=== PATIENT | male | born 1980 | race Hispanic/Latino ===

== ENCOUNTER 2018-12-27 19:21 | Emergency (ER) | payer SELFPAY ==
[~2018-12-27] VITALS: Ht 180.3 cm; Wt 70.3 kg
--- OUTSIDE RECORDS SUMMARY | 2018-12-27 19:23 | XMS REPORT ---
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 Allergies, Adverse Reactions, Alerts Allergy Name Allergy Type Status Severity Reaction(s) Onset Date Inactive Date Treating Clinician Comments No Known Allergies DA Active U 2015-04-20 00:00:00 Medications This patient has no known medications. Encounters Start Date/Time End Date/Time Encounter Type Admission Type Attending Clinicians Care Facility Care Department Encounter ID 2018-05-04 08:53:34 Inpatient [facility] [id number] 2018-05-02 13:04:42 Inpatient [facility] [id number] 2018-05-02 06:47:36 Inpatient [facility] [id number] 2018-05-02 05:37:00 Inpatient [facility] [id number] 2018-05-02 00:00:00 Inpatient [facility] [id number] 2018-04-24 00:00:00 Inpatient [facility] [id number] 2018-08-15 00:00:00 2018-08-15 00:00:00 Outpatient [facility] [id number] 2018-06-26 00:00:00 2018-06-26 00:00:00 Outpatient [facility] [id number] 2018-06-17 00:00:00 2018-06-17 00:00:00 Outpatient [facility] [id number] 2018-05-23 08:31:28 2018-05-23 08:31:28 Outpatient [facility] [id number] 2018-05-10 00:00:00 2018-05-10 00:00:00 Outpatient [facility] [id number] 2018-05-02 00:00:00 2018-05-02 00:00:00 Outpatient [facility] [id number] 2018-04-24 09:49:27 2018-04-24 09:49:27 Outpatient [facility] [id number] 2018-04-24 08:44:40 2018-04-24 08:44:40 Outpatient [facility] [id number] 2018-04-18 10:22:40 2018-04-18 10:22:40 Outpatient [facility] [id number] 2018-04-18 09:15:34 2018-04-18 09:15:34 Outpatient [facility] [id number] 2018-03-08 15:14:19 2018-03-08 15:14:19 Outpatient [facility] [id number] 2018-02-28 10:30:57 2018-02-28 10:30:57 Outpatient [facility] [id number] 2018-02-28 08:30:35 2018-02-28 08:30:35 Outpatient [facility] [id number] 2018-02-02 00:39:50 2018-02-02 00:39:50 Emergency [facility] [id number] 2018-02-01 23:22:23 2018-02-01 23:22:23 Emergency [facility] [id number] 2018-02-01 14:26:25 2018-02-01 14:26:25 Emergency [facility] [id number] 2017-08-15 00:00:00 2017-08-16 00:00:00 Outpatient [facility] [id number]
--- OUTSIDE RECORDS SUMMARY | 2018-12-27 19:23 | XMS REPORT | Clinical Summary ---
Author Author [facility] Organization [facility] Address Unknown Phone Unavailable Care Team Providers Care Shaft Repairer Name Role Phone Celeste Wright RN 78 Unavailable Allergies No Known Allergies Medications End Date Status Medication Sig Dispensed Refills Start Date Active oxybutynin (DITROPAN) 5 Take 1 tablet 60 tablet 3 mg tabletIndications: by mouth 2 8 Nocturia times daily. Active acetaminophen-codeine Take 1 tablet 30 tablet 0 (TYLENOL #3) 300-30 mg by mouth 9 per tabletIndications: every 6 hours Renal mass as needed for Pain. Active traMADol (ULTRAM) 50 mg Take 1 tablet 30 tablet 0 tabletIndications: Renal by mouth 9 mass every 6 hours as needed for Pain. 05/15/2018 docusate sodium (COLACE) Take 1 40 capsule 0 100 mg capsule by 9 capsuleIndications: Renal mouth 2 times mass daily for 10 days. Active Problems Problem Noted Date Left renal mass 05/02/2018 Renal mass 02/01/2018 Post-op pain Encounters Care Team Description Date Type Specialty Keisha Gillis 06/12/2018 Clinical Case Mgt Christian Hernandez MD Renal mass 05/23/2018 Office Visit Urology Chester Fish NP 05/02/2018 Anesthesia Event Gabino Colvin MD UROL - LAPAROSCOPIC LEFT NEPHRECTOMY 05/02/2018 Surgery Gabino Colvin MD Renal mass (Primary Dx); Post-op pain 05/02/2018 Hospital - Encounter 05/05/2018 Delfin Mcdonald MD Renal mass 04/24/2018 Hospital Lab Encounter Urology, Dn, Resident Delfin Mcdonald MD 04/24/2018 Hospital Encounter Christian Hernandez MD 04/18/2018 Hospital Radiology Encounter Christian Hernandez MD Espinosa, Giselle, PA Renal lesion (Primary Dx) 04/18/2018 Office Visit Urology Jasiel Santiago ResidentMD Renal mass (Primary Dx) 04/18/2018 Pre-Clinic Urology Review Renal mass 03/08/2018 Ancillary Radiology Procedure Christian Hernandez MD 02/28/2018 Hospital Lab Encounter Lalit Hinkle MD Moreno, Juan F, PA Nocturia (Primary Dx); Renal mass 02/28/2018 Office Visit Urology Lalit Hinkle MD Renal mass (Primary Dx) 02/01/2018 Emergency Emergency Medicine - 02/02/2018 after 12/26/2017 Family History Medical History Relation Name Comments Cancer Maternal Grandmother Diabetes Maternal Grandmother Relation Name Status Comments Maternal Grandmother Social History Date Tobacco Use Types Packs/Day Years Used Current Every Day Smoker Cigarettes Smokeless Tobacco: Never Used Tobacco Cessation: Ready to Quit: Yes; Counseling Given: Yes Drinks/Week oz/Week Comments Alcohol Use No Sex Assigned at Date Recorded Not on file Industry Job Start Date Occupation Not on file Not on file Not on file Travel End Travel History Travel Start No recent travel history available. Last Filed Vital Signs Reading Time Taken Comments Vital Sign 102/57 05/23/2018 8:33 AM PHYSIOTHERAPY PRACTICE MANAGER Blood Pressure 69 05/23/2018 8:33 AM PHYSIOTHERAPY PRACTICE MANAGER Pulse 36.8 C (98.2 F) 05/23/2018 8:33 AM PHYSIOTHERAPY PRACTICE MANAGER Temperature 18 05/23/2018 8:33 AM PHYSIOTHERAPY PRACTICE MANAGER Respiratory Rate 95% 05/05/2018 7:00 AM PHYSIOTHERAPY PRACTICE MANAGER Oxygen Saturation - - Inhaled Oxygen Concentration 68.4 kg (150 lb 14.4 oz) 05/23/2018 8:33 AM PHYSIOTHERAPY PRACTICE MANAGER Weight 180.3 cm (5' 11") 05/23/2018 8:33 AM PHYSIOTHERAPY PRACTICE MANAGER Height 21.05 05/23/2018 8:33 AM PHYSIOTHERAPY PRACTICE MANAGER Body Mass Index Plan of Treatment Health Maintenance Due Date Last Done Comments IMM Influenza Seasonal 01/21/2019 Oct to June (>/=19 yrs) Procedures Comments Procedure Name Priority Date/Time Associated Diagnosis BASIC METABOLIC PANEL Routine 05/05/2018 4:05 AM PHYSIOTHERAPY PRACTICE MANAGER CBC/DIFF Routine 05/05/2018 4:05 AM PHYSIOTHERAPY PRACTICE MANAGER BASIC METABOLIC PANEL Routine 05/04/2018 12:[address] CHEST W CONTRAST Discharge 05/04/2018 Renal mass Today 9:33 AM PHYSIOTHERAPY PRACTICE MANAGER BASIC METABOLIC PANEL Routine 05/04/2018 3:50 AM PHYSIOTHERAPY PRACTICE MANAGER CBC/DIFF Routine 05/04/2018 3:50 AM PHYSIOTHERAPY PRACTICE MANAGER SEQUENTIAL COMPRESSION Routine 05/03/2018 PUMP 8:32 PM PHYSIOTHERAPY PRACTICE MANAGER BASIC METABOLIC PANEL Routine 05/03/2018 3:36 AM PHYSIOTHERAPY PRACTICE MANAGER CBC/DIFF Routine 05/03/2018 3:36 AM PHYSIOTHERAPY PRACTICE MANAGER XRAY CHEST 1 VIEW STAT 05/02/2018 Renal mass 1:21 PM PHYSIOTHERAPY PRACTICE MANAGER SEQUENTIAL COMPRESSION Routine 05/02/2018 PUMP 1:06 PM PHYSIOTHERAPY PRACTICE MANAGER INFUSION PUMP Routine 05/02/2018 1:06 PM PHYSIOTHERAPY PRACTICE MANAGER CBC/DIFF Routine 05/02/2018 1:05 PM PHYSIOTHERAPY PRACTICE MANAGER BASIC METABOLIC PANEL Routine 05/02/2018 1:05 PM PHYSIOTHERAPY PRACTICE MANAGER ANESTHESIA PERIPHERAL Routine 05/02/2018 BLOCK 12:53 PM PHYSIOTHERAPY PRACTICE MANAGER Procedure Note - Sumit Brownlee MD - 05/02/2018 12:53 PM PHYSIOTHERAPY PRACTICE MANAGER Peripheral Nerve Block Nerve block type: B/L QL. Patient location during procedure: OR Pain location during procedure: abdomen Start time: 05/02/2018 12:15 PM End time: 05/02/2018 12:25 PM Indication : post-op pain management Staffing Anesthesio logist: Sumit Brownlee MD FIELD CROP II FARMWORKER/Resid ent: Jd Gaytan ResidentMD Pre-proced ure Checklist Completed: Patient identity confirmed. Surgical consent. Immediatel y prior to the procedure a time out was called. A time out verifies correct patient, procedure, equipment, emotional support teacher and site/side marked and Risk, benefits, and alternativ es were discussed Procedure Details Patient position: supine Prep: ChloraPrep Monitoring : blood pressure, continuous pulse ox and EKG Laterality : right Injection technique: single shot Procedures : ultrasound guided Maximum sterile barrier: antiseptic prep, cap worn, sterile gloves worn, hand hygiene performed and mask worn Needle Needle type: short-beve l Needle gauge: 21 Needle localizati on: ultrasound guidance Local Anesthetic : EXPAREL Volume Given (mL): 30 Nerve Stimulator or Paresthesi a Response Additional Responses: Bilateral QL block performed by Dr. Gaytan under supervisio n by Dr. Brownlee. --Left side: 10cc of Bupivacain e 0.5% + 10cc of Exparel injected under ultrasound guidance with good lateral spread noted along fascial plane. No complicati ons. --Right side: 20cc of Bupivacain e 0.5% +10cc of Exparel injected under ultrasound guidance with good lateral spread noted along fascial plane. No complicati ons. ANESTHESIA PERIPHERAL Routine 05/02/2018 BLOCK 12:51 PM PHYSIOTHERAPY PRACTICE MANAGER Procedure Note - Sumit Brownlee MD - 05/02/2018 12:51 PM PHYSIOTHERAPY PRACTICE MANAGER Peripheral Nerve Block Nerve block type: QL Bilateral. Patient location during procedure: OR Pain location during procedure: abdomen Start time: 05/02/2018 12:15 PM End time: 05/02/2018 12:25 PM Indication : post-op pain management Staffing Anesthesio logist: Sumit Brownlee MD [employer] FARMWORKER/Resid ent: Jd Gaytan ResidentMD Pre-proced ure Checklist Completed: Patient identity confirmed. Surgical consent. Immediatel y prior to the procedure a time out was called. A time out verifies correct patient, procedure, equipment, emotional support teacher and site/side marked and Risk, benefits, and alternativ es were discussed Procedure Details Patient position: supine Prep: ChloraPrep Monitoring : blood pressure, continuous pulse ox and EKG Laterality : left Injection technique: single shot Procedures : ultrasound guided Maximum sterile barrier: antiseptic prep, cap worn, sterile gloves worn, hand hygiene performed and mask worn Needle Needle type: short-beve l Needle gauge: 21 Needle localizati on: ultrasound guidance Local Anesthetic : EXPAREL Volume Given (mL): 20 Nerve Stimulator or Paresthesi a Response Additional Responses: Bilateral QL block performed by Dr. Gaytan under supervisio n by Dr. Brownlee. --Left side: 10cc of Bupivacain e 0.5% + 10cc of Exparel injected under ultrasound guidance with good lateral spread noted along fascial plane. No complicati ons. --Right side: 20cc of Bupivacain e 0.5% +10cc of Exparel injected under ultrasound guidance with good lateral spread noted along fascial plane. No complicati ons. [facility] Routine 05/02/2018 11:30 AM PHYSIOTHERAPY PRACTICE MANAGER SODIUM/POTASSIUM STAT 05/02/2018 10:23 AM PHYSIOTHERAPY PRACTICE MANAGER CALCIUM, IONIZED STAT 05/02/2018 10:23 AM PHYSIOTHERAPY PRACTICE MANAGER HEMOGLOBIN STAT 05/02/2018 10:23 AM PHYSIOTHERAPY PRACTICE MANAGER GLUCOSE STAT 05/02/2018 10:23 AM PHYSIOTHERAPY PRACTICE MANAGER CHLORIDE STAT 05/02/2018 10:23 AM PHYSIOTHERAPY PRACTICE MANAGER BLOOD GAS, ARTERIAL STAT 05/02/2018 10:23 AM PHYSIOTHERAPY PRACTICE MANAGER [facility] ANESTHESIA BLOCK Routine 05/02/2018 ARTERIAL CATHETER 9:48 AM PHYSIOTHERAPY PRACTICE MANAGER Procedure Note - Abelardo Calderon ResidentMD - 05/02/2018 9:48 AM PHYSIOTHERAPY PRACTICE MANAGER Arterial Catheter (A-line) Laterality : right Site: radial Prep: ChloraPrep Catheter Gauge: 20 G Pre-proced ure Checklist Completed: Patient identity confirmed. Risks, benefits, and alternativ es were discussed. Procedures Sterile barrier used: antiseptic used for procedure, sterile gloves worn, hand hygiene performed prior to procedure and mask worn. Narrative Start Time: 05/02/2018 8:43 AM End Time: 05/02/2018 8:45 AM Anesthesio logist: Dr. Fan Resident/C RNA: MD Kvng CA1 Notes Uncomplica nyla placement of arterial line by CA1 INTUBATION Routine 05/02/2018 9:18 AM PHYSIOTHERAPY PRACTICE MANAGER Procedure Note - Abelardo Calderon ResidentMD - 05/02/2018 9:18 AM PHYSIOTHERAPY PRACTICE MANAGER INTUBATION Date/Time: 05/02/2018 8:43 AM Urgency: elective Airway not difficult General Informatio n and Staff Patient location during procedure: OR Anesthesio logist: Philip Fan MD Resident/C RNA: Abelardo Caledron ResidentMD Performed: resident/C RNA Indicatio ns and Patient Condition Indication s for airway management : anesthesia Spontaneou s Ventilatio n: absent Sedation level: deep Preoxygena nyla: yes Patient position: sniffing MILS maintained throughout Mask difficulty assessment : 2 - vent by mask + OA or adjuvant +/- NMBA Final Airway Details Final airway type: endotrache al airway Successful airway: ETT Cuffed: yes Successful intubation technique: direct Facilitati ng devices/me thods: anterior pressure/B URP Endotrache al tube insertion site: oral Blade: Benjamin Blade size: #3 Cords visualized : grade 2 Placement verified by: chest auscultati on and capnometry Measured from: lips ETT to lips (cm): 24 Number of attempts at approach: 1 Ventilatio n between attempts: none Additiona l Comments Easy bag mask ventilatio n with oral airway in place. DL with x 1 by Efrain Sanders MD PGY1. Grade 2 view. 8.0 ETT passed atraumatic ally through cords to 24 cm at lips. Cuff inflated, tube taped in place. Positionin g confirmed with auscultati on and ETCO2. 14Fr OG tube passed through esophagus, stomach contents suctioned. No trauma to teeth or lips. Abelardo Calderon MD, MPH [facility] Anesthesio logy, CA1/PGY2 #[id number] UROL - NEPHRECTOMY, 05/02/2018 Renal mass LAPAROSCOPIC 8:27 AM PHYSIOTHERAPY PRACTICE MANAGER Special Needs 5:45 am arrival time confirmed with patient RBC UNITS STAT 05/02/2018 7:06 AM PHYSIOTHERAPY PRACTICE MANAGER TYPE AND SCREEN STAT 05/02/2018 7:06 AM PHYSIOTHERAPY PRACTICE MANAGER URINE CULTURE Routine 04/24/2018 Renal mass 10:00 AM PHYSIOTHERAPY PRACTICE MANAGER HIV-1/HIV-2 ROUTINE Routine 04/24/2018 SCREENING 9:56 AM PHYSIOTHERAPY PRACTICE MANAGER PT/INR/PTT Routine 04/24/2018 Renal mass 9:56 AM PHYSIOTHERAPY PRACTICE MANAGER CBC/DIFF Routine 04/24/2018 Renal mass 9:56 AM PHYSIOTHERAPY PRACTICE MANAGER COMPREHENSIVE METABOLIC Routine 04/24/2018 Renal mass PANEL 9:56 AM PHYSIOTHERAPY PRACTICE MANAGER 12 LEAD EKG Routine 04/24/2018 9:31 AM PHYSIOTHERAPY PRACTICE MANAGER XRAY CHEST 2 VIEWS Routine 04/18/2018 Renal lesion 10:28 AM PHYSIOTHERAPY PRACTICE MANAGER CT ABDOMEN W AND W/O Routine 03/08/2018 Renal mass CONTRAST - KIDNEY 4:22 PM PHYSIOTHERAPY PRACTICE MANAGER CREATININE Routine 02/28/2018 Renal mass 10:47 AM PHYSIOTHERAPY PRACTICE MANAGER CT ABDOMEN AND PELVIS STAT 02/02/2018 Renal mass CONTRAST 1:30 AM CDT BMP POC Routine 02/01/2018 5:00 PM CDT CBC/DIFF STAT 02/01/2018 4:57 PM CDT URINALYSIS STAT 02/01/2018 4:51 PM CDT after 12/26/2017 Results * CBC/DIFF (05/05/2018 4:05 AM PHYSIOTHERAPY PRACTICE MANAGER) Only the most recent of 6 results within the time period is included. WBC 10.0 4.5 - 12.0 K/uL [facility] 2 RBC 4.43 (L) 4.60 - 6.20 M/uL [facility] 2 Hemoglobin 13.4 (L) 14.0 - 18.0 g/dL BT [facility] 2 Hematocrit 41.9 40.0 - 54.0 % BT [facility] 2 MCV 95 (H) 82 - 92 fL [facility] 2 MCH 30.2 27.0 - 31.0 pg BT [facility] 2 MCHC 32.0 32.0 - 36.0 g/dL [facility] 2 RDW 43.2 35.1 - 43.9 fL [facility] 2 Platelets 245 150 - 400 K/uL [facility] 2 Mean Platelet 11.1 9.4 - 12.4 fL [facility] Volume 2 Percent NRBC 0.0 BT [facility] 2 Absolute NRBC 0.00 BT [facility] 2 Neutrophils 69.6 (H) 34.0 - 67.9 % [facility] 2 Lymphs 19.5 (L) 21.8 - 50.0 % [facility] 2 Monocytes 8.0 5.3 - 12.0 % [facility] 2 Eos 2.1 0.8 - 5.0 % BT [facility] 2 Basos 0.2 0.2 - 1.2 % [facility] 2 Immature 0.6 (H) 0.0 - 0.5 [facility] Granulocytes 2 Neutrophils 6.95 (H) 1.78 - 5.36 K/uL [facility] (Absolute) 2 Lymphs 1.95 1.32 - 3.57 K/uL BT [facility] (Absolute) 2 Monocytes(Absol 0.80 0.30 - 0.82 K/uL BT [facility] williams) 2 Eos (Absolute) 0.21 0.04 - 0.54 K/uL BT [facility] 2 Baso (Absolute) 0.02 0.01 - 0.08 K/uL BT [facility] 2 Immature Grans 0.06 (H) 0.00 - 0.03 K/uL [facility] (Abs) 2 Specimen Blood Performing Organization Address City/[facility] Phone Number MISYS [facility] 2 * BASIC METABOLIC PANEL (05/05/2018 4:05 AM PHYSIOTHERAPY PRACTICE MANAGER) Only the most recent of 5 results within the time period is included. CO2 28 21 - 31 mmol/L BT [facility] 1 Chloride 99 98 - 107 mmol/L [facility] 1 Potassium 3.8 3.5 - 5.1 mmol/L BT [facility] 1 Sodium 137 136 - 145 mmol/L [facility] 1 Glucose 94 70 - 110 mg/dL [facility] 1 BUN 8 7 - 25 mg/dL [facility] 1 Creatinine 1.10 0.7 - 1.3 mg/dL [facility] 1 Anion Gap 10 BT [facility] 1 Calcium 9.3 8.6 - 10.3 mg/dL [facility] 1 GFR, Estimated >60 mL/min/1.73 m2 BT [facility] 1 eGFR If Africn >60 mL/min/1.73 m2 [facility] Am 1 Specimen Blood Performing Organization Address City/[facility] Phone Number MISYS [facility] 1 * CT CHEST W CONTRAST (05/04/2018 9:33 AM PHYSIOTHERAPY PRACTICE MANAGER) Specimen Impressions Performed At IMPRESSION: SMS Partially seen findings status post left nephrectomy with stranding and gas in the surgical bed, and small volume pneumoperitoneum, consistent with recent surgery. A 4 mm subpleural left lingular solid nodule is indeterminate. Recommend follow-up per oncology protocol. Mild bibasilar consolidations may represent atelectasis or aspiration pneumonia the appropriate clinical setting. Dictated By: Lanie Ellison MD, 05/04/2018 4:35 PM I have reviewed the study and agree with the findings in this report. Signed By: Kori Rich MD, 05/04/2018 4:55 PM Narrative Performed At EXAM: Chest CT with contrast SMS TECHNIQUE: CT scan of the chestWITH intravenous contrast, using standard protocol.The chest was scanned utilizing a multidetector helical scanner from the lung apex through the level of the adrenal glands after the IV administration of 100 cc of Omnipaque 300.Coronal and sagittal reformations were obtained. COMPARISON: Chest radiograph 05/02/2018 INDICATION: Nodular hyperdensities on chest radiograph. DISCUSSION: Lines/tubes:None. Lungs and Airways: Calcified granuloma in the left upper lobe (series 2, image 54). Mild bibasilar consolidations. 4 mm subpleural left lingular solid nodule (series 2, image 87). Pleura: Trace left pleural effusion. No pneumothorax. Heart and mediastinum: The thyroid gland is normal. No mediastinal, hilar or axillary lymphadenopathy is seen. The heart and pericardium are within normal limits. The left vertebral artery branches off of the aortic arch. The main pulmonary artery and the mid ascending aorta measures 2.4 and 2.8 cm respectively. Abdomen:Surgically absent left kidney with stranding and gas in the left retroperitoneum. There is a small amount of pneumoperitoneum in the upper abdomen. Otherwise unremarkable. Bones/ Soft tissue: The visualized bony thorax is within normal limits. Procedure Note Interface, Rad/Mammog In - 05/04/2018 5:00 PM PHYSIOTHERAPY PRACTICE MANAGER EXAM: Chest CT with contrast TECHNIQUE: CT scan of the chest WITH intravenous contrast, using standard protocol. The chest was scanned utilizing a multidetector helical scanner from the lung apex through the level of the adrenal glands after the IV administration of 100 cc of Omnipaque 300. Coronal and sagittal reformations were obtained. COMPARISON: Chest radiograph 05/02/2018 INDICATION: Nodular hyperdensities on chest radiograph. DISCUSSION: Lines/tubes: None. Lungs and Airways: Calcified granuloma in the left upper lobe (series 2, image 54). Mild bibasilar consolidations. 4 mm subpleural left lingular solid nodule (series 2, image 87). Pleura: Trace left pleural effusion. No pneumothorax. Heart and mediastinum: The thyroid gland is normal. No mediastinal, hilar or axillary lymphadenopathy is seen. The heart and pericardium are within normal limits. The left vertebral artery branches off of the aortic arch. The main pulmonary artery and the mid ascending aorta measures 2.4 and 2.8 cm respectively. Abdomen:Surgically absent left kidney with stranding and gas in the left retroperitoneum. There is a small amount of pneumoperitoneum in the upper abdomen. Otherwise unremarkable. Bones/ Soft tissue: The visualized bony thorax is within normal limits. IMPRESSION IMPRESSION: Partially seen findings status post left nephrectomy with stranding and gas in the surgical bed, and small volume pneumoperitoneum, consistent with recent surgery. A 4 mm subpleural left lingular solid nodule is indeterminate. Recommend follow-up per oncology protocol. Mild bibasilar consolidations may represent atelectasis or aspiration pneumonia the appropriate clinical setting. Dictated By: Lanie Ellison MD, 05/04/2018 4:35 PM I have reviewed the study and agree with the findings in this report. Signed By: Kori Rich MD, 05/04/2018 4:55 PM Performing Organization Address City/State/Zipcode Phone Number SMS * XRAY CHEST 1 VIEW (05/02/2018 1:21 PM PHYSIOTHERAPY PRACTICE MANAGER) Specimen Impressions Performed At IMPRESSION: SMS 1.Multiple nonspecific nodular densities. Dedicated CT chest without contrast is recommended for further evaluation given history of renal mass. 2.Status post nephrectomy with postsurgical subdiaphragmatic free air. 3.No pneumothorax. If the report is "FINALIZED" it indicates that the attending/staff radiologist has reviewed the images and agrees with the resident's interpretation. Dictated By: Morgan Oneill MD, 05/02/2018 1:33 PM I have reviewed the study and agree with the findings in this report. Signed By: Axel Betancourt MD, 05/02/2018 1:34 PM Narrative Performed At EXAM: XR CHEST 1 VIEW SMS DATE: 05/02/2018 1:21 PM INDICATION: eval for PTX COMPARISON: Chest radiograph on 04/18/2018. FINDINGS: Devices, Lines, and Tubes: None. Heart and Mediastinum: The cardiomediastinal silhouette is unremarkable. Lungs and Pleura: Stable multiple nonspecific nodular densities. No significant pleural effusion, pneumothorax, or focal consolidation. Bones and Soft Tissues: The patient is status post nephrectomy with noted postsurgical subdiaphragmatic free air. Procedure Note Interface, Rad/Mammog In - 05/02/2018 1:40 PM PHYSIOTHERAPY PRACTICE MANAGER EXAM: XR CHEST 1 VIEW DATE: 05/02/2018 1:21 PM INDICATION: eval for PTX COMPARISON: Chest radiograph on 04/18/2018. FINDINGS: Devices, Lines, and Tubes: None. Heart and Mediastinum: The cardiomediastinal silhouette is unremarkable. Lungs and Pleura: Stable multiple nonspecific nodular densities. No significant pleural effusion, pneumothorax, or focal consolidation. Bones and Soft Tissues: The patient is status post nephrectomy with noted postsurgical subdiaphragmatic free air. IMPRESSION IMPRESSION: 1. Multiple nonspecific nodular densities. Dedicated CT chest without contrast is recommended for further evaluation given history of renal mass. 2. Status post nephrectomy with postsurgical subdiaphragmatic free air. 3. No pneumothorax. If the report is "FINALIZED" it indicates that the attending/staff radiologist has reviewed the images and agrees with the resident's interpretation. Dictated By: Morgan Oneill MD, 05/02/2018 1:33 PM I have reviewed the study and agree with the findings in this report. Signed By: Axel Betancourt MD, 05/02/2018 1:34 PM Performing Organization Address City/State/Zipcode Phone Number SMS * [facility] (05/02/2018 11:30 AM PHYSIOTHERAPY PRACTICE MANAGER) HX FINAL KIDNEY, LEFT, TOTAL COPATH DIAGNOSIS NEPHRECTOMY: - CLEAR CELL RENAL CELL CARCINOMA, WHO/ISUP GRADE 2 - TUMOR SIZE: 4.1 CM IN GREATEST DIMENSION - TUMOR EXTENSION INTO RENAL SINUS - SURGICAL MARGINS NEGATIVE FOR CARCINOMA - NO SARCOMATOID FEATURES IDENTIFIED - NO RHABDOID FEATURES IDENTIIFIED - NO NECROSIS IDENTIFIED - ONE PERIRENAL LYMPH NODE NEGATIVE FOR METASTATIC CARCINOMA (0/1) - PATHOLOGIC STAGING (pTNM, AJCC 8TH EDITION): [id number] - SEE CANCER SYNOPTIC REPORT IN MICROSOPIC DESCRIPTION Pathologic Stage Classification (pTNM, AJCC 8th Edition) Primary Tumor (pT): pT3a: Tumor invades renal sinus but not beyond Gerota's fascia Regional Lymph Nodes (pN): pN0: No regional lymph node metastasis Distant Metastasis (pM): MX Kavita Aviles M.D., PhD./[id number] Staff Pathologist Specimen Narrative Performed At Name [facility]UL[facility] Date of 1980 Hospital Number [id number] Location [facility] MED/SURG SURGICAL PATHOLOGY Collected:05/02/2018 11:30 Received: 05/02/2018 11:36 PATHOLOGIC DIAGNOSIS KIDNEY, LEFT, TOTAL NEPHRECTOMY: - CLEAR CELL RENAL CELL CARCINOMA, WHO/ISUP GRADE 2 - TUMOR SIZE: 4.1 CM IN GREATEST DIMENSION - TUMOR EXTENSION INTO RENAL SINUS - SURGICAL MARGINS NEGATIVE FOR CARCINOMA - NO SARCOMATOID FEATURES IDENTIFIED - NO RHABDOID FEATURES IDENTIIFIED - NO NECROSIS IDENTIFIED - ONE PERIRENAL LYMPH NODE NEGATIVE FOR METASTATIC CARCINOMA (0/1) - PATHOLOGIC STAGING (pTNM, AJCC 8TH EDITION): [id number] - SEE CANCER SYNOPTIC REPORT IN MICROSOPIC DESCRIPTION Pathologic Stage Classification (pTNM, AJCC 8th Edition) Primary Tumor (pT): pT3a: Tumor invades renal sinus but not beyond Gerota's fascia Regional Lymph Nodes (pN): pN0: No regional lymph node metastasis Distant Metastasis (pM): MX Kavita Aviles M.D., PhD./[id number] Staff Pathologist Pertinent Clinical Information [place] the kidney for show and tell Gross Description Specimen Material:Left kidney The case is received in one part labeled with the patient's name "XENA JULIAN JR.", medical record number and given accession number [id number], and it is accompanied by a requisition form labeled with the same name and accession number. Received in formalin labeled "LEFT KIDNEY" is a 321 gram, 13 x 8 x 5 left nephrectomy containing a 12 x 6.5 x 5 cm kidney with ureter (4.1 cm in length, 0.2 cm in diameter), renal artery (0.8 cm in length, and 0.7 cm in diameter), renal vein (0.7 cm in length and 1.1 cm in diameter) and 5.5 x 3.6 x 2 cm attached adipose tissue.No adrenal gland is identified. The kidney is bivalved to display a 4.1 x 4 x 3 cm, 50% cystic and 50% hong-yellow hemorrhagic and circumscribed mass predominantly in the inferior pole.The mass is abutting the renal capsule, it is 8.6 cm from the ureteral margin, 3.5 cm from the renal artery, 2.5 cm from the renal vein, 2 cm from the renal pelvis, 6.0 cm from ureter margin and 0.2 cm from the perinephric fat. The remaining kidney parenchyma is hong-red, homogenous and unremarkable and the corticomedullary junction is well-defined.The cortex is 0.2 cm thick. The urothelium is white and smooth.There are no lymph nodes identified. Ink Code: BlackGerota's fascial margin Section Code: [id number] and ureteral margin A2-Q2lswxiqccadkowl sections of tumor S1dcnxb to normal in capsule T2twybr to urothelium U8hvfpg to perinephric fat J8jqbul to renal pelvis J7avxrnz section of renal pelvis R86wjoohd calyx Z23rojvaj corticomedullary //[id number] Band Tumbler HEIDI MEDINA MD Pathology Resident Microscopic Description Sections show renal parenchyma with a renal cell carcinoma. The tumor is relatively circumscribed and arranged in nests, tubules with cystic changes and hemorrhage. The tumor cells have abundant clear cytoplasm and round nuclei. No priminent nucleoli under 100x are seen. There is one small focus of tumor extension into renal sinus. CAP CANCER SYNOPTIC REPORT Procedure:Total nephrectomy Specimen Laterality:Left Tumor Site:Lower pole Tumor Size:4.1 x 4 x 3 cm Tumor Focality:Unifocal Histologic Type:Clear cell renal cell carcinoma Sarcomatoid Features:Not identified Rhabdoid Features: Not identified Histologic Grade (WHO/ISUP): Grade 2: Nucleoli conspicuous and eosinophilic at 400x magnification, visible but not prominent at 100x magnification Tumor Necrosis:Not identified Tumor Extension:Tumor extension into renal sinus Margins:Uninvolved by invasive carcinoma Lymphovascular Invasion:Not identified Regional Lymph Nodes Number of Lymph Nodes Involved: 0 Number of Lymph Nodes Examined: 1 Pathologic Stage Classification (pTNM, AJCC 8th Edition) Primary Tumor (pT): pT3a: Tumor invades renal sinus but not beyond Gerota's fascia Regional Lymph Nodes (pN): pN0: No regional lymph node metastasis Distant Metastasis (pM): MX Pathologic Findings in Non-neoplastic Kidney:None I have personally reviewed the relevant preparations for the specimen(s), reviewedand agreed with the resident/fellow's interpretation. Real HAWK/[id number] Pathology Resident Electronically Signed Out Kavita Aviles M.D., PhD./[id number] Staff Pathologist Performing Organization Address City/State/[facility] Phone Number ARON SHARP [employer], [place] * SODIUM/POTASSIUM (05/02/2018 10:23 AM PHYSIOTHERAPY PRACTICE MANAGER) Sodium 134 (L) 136 - 145 mmol/L BT 4TH FLOOR Potassium 3.4 (L) 3.5 - 5.1 mmol/L BT 4TH FLOOR Specimen Performing Organization Address [facility] Phone Number MISYS BT 4TH FLOOR * CALCIUM, IONIZED (05/02/2018 10:23 AM PHYSIOTHERAPY PRACTICE MANAGER) Calcium, 1.11 (L) 1.15 - 1.29 mmol/L BT 4TH FLOOR Ionized Specimen Performing Organization Address [facility] Phone Number MISYS BT 4TH FLOOR * HEMOGLOBIN (05/02/2018 10:23 AM PHYSIOTHERAPY PRACTICE MANAGER) Hemoglobin 13.5 (L) 14.0 - 18.0 g/dL BT 4TH FLOOR Specimen Performing Organization Address [facility] Phone Number MISYS BT 4TH FLOOR * GLUCOSE (05/02/2018 10:23 AM PHYSIOTHERAPY PRACTICE MANAGER) Glucose 141 (H) 70 - 110 mg/dL BT 4TH FLOOR Specimen Performing Organization Address City/[facility] Phone Number MISYS BT 4TH FLOOR * CHLORIDE (05/02/2018 10:23 AM PHYSIOTHERAPY PRACTICE MANAGER) Chloride 110 (H) 98 - 107 mmol/L BT 4TH FLOOR Specimen Performing Organization Address [facility] Phone Number MISYS BT 4TH FLOOR * BLOOD GAS, ART (05/02/2018 10:23 AM PHYSIOTHERAPY PRACTICE MANAGER) Temperature 37.0 degree C BT 4TH FLOOR pH, Art 7.41 7.35 - 7.45 BT 4TH FLOOR pCO2, Art 40.0 32.0 - 45.0 mm Hg BT 4TH FLOOR pO2, Art 304 (H) 72 - 104 mm Hg BT 4TH FLOOR Base Excess, 1.0 mmol/L BT 4TH FLOOR Art HCO3, Art 25.1 22.0 - 26.0 mmol/L BT 4TH FLOOR % Sat, Arterial 100 (H) 95 - 99 % BT 4TH FLOOR Specimen Performing Organization Address City/[facility] Phone Number MISYS BT 4TH FLOOR * CROSSMATCH (ADDITIONAL RED CELL UNITS-LAB) (05/02/2018 7:06 AM PHYSIOTHERAPY PRACTICE MANAGER) Unit Number [id number] BT BLOOD BANK Blood Component Leuko-poor red cells BT BLOOD BANK UNIT DIVISION 0 BT BLOOD BANK Status of Unit Released BT BLOOD BANK Transfusion OK to transfuse BT BLOOD BANK Status Crossmatch Compatible BT BLOOD BANK Result Unit Number [id number] BT BLOOD BANK Blood Component Leuko-poor red cells BT BLOOD BANK UNIT DIVISION 0 BT BLOOD BANK Status of Unit Released BT BLOOD BANK Transfusion OK to transfuse BT BLOOD BANK Status Crossmatch Compatible BT BLOOD BANK Result Specimen Blood Performing Organization Address City/State/Zipcode Phone Number MISYS BT BLOOD BANK [address] [place] [address] * URINE CULTURE (04/24/2018 10:00 AM PHYSIOTHERAPY PRACTICE MANAGER) Spec Clean catch urine BT MICROBIOLOGY Description Order Comments None BT MICROBIOLOGY Culture No growth 2 days BT MICROBIOLOGY Report Status Final 04/26/2018 BT MICROBIOLOGY Specimen Urine clean catch - Clean Catch [place] Performing Organization Address [facility] Phone Number MISYS BT MICROBIOLOGY * HIV-1/HIV-2 ROUTINE SCREENING (04/24/2018 9:56 AM PHYSIOTHERAPY PRACTICE MANAGER) HIV-1/HIV-2 Negative NEG BT MAIN-STATION 3 Specimen Performing Organization Address City/[facility] Phone Number MISYS BT MAIN-STATION 3 * COMPREHENSIVE METABOLIC PANEL(DBIL NOT INCLUDED) (04/24/2018 9:56 AM PHYSIOTHERAPY PRACTICE MANAGER) Albumin 4.4 4.2 - 5.5 g/dL BT MAIN-STATION 1 Calcium 9.4 8.6 - 10.3 mg/dL BT MAIN-STATION 1 CO2 29 21 - 31 mmol/L BT MAIN-STATION 1 Chloride 103 98 - 107 mmol/L BT MAIN-STATION 1 Creatinine 0.80 0.7 - 1.3 mg/dL BT MAIN-STATION 1 Glucose 102 70 - 110 mg/dL BT MAIN-STATION 1 Alkaline 59 34 - 104 U/L BT MAIN-STATION Phosphatase, S 1 Potassium 4.6 3.5 - 5.1 mmol/L BT MAIN-STATION 1 Sodium 139 136 - 145 mmol/L BT MAIN-STATION 1 ALT 16 7 - 52 U/L BT MAIN-STATION 1 AST (SGOT) 14 13 - 39 U/L BT MAIN-STATION 1 BUN 9 7 - 25 mg/dL BT MAIN-STATION 1 Bilirubin, 0.3 0.2 - 1.2 mg/dL BT MAIN-STATION Total 1 Protein, Total, 7.1 6.0 - 8.3 g/dL BT MAIN-STATION Serum 1 GFR, Estimated >60 mL/min/1.73 m2 BT MAIN-STATION 1 eGFR If Africn >60 mL/min/1.73 m2 BT MAIN-STATION Am 1 Anion Gap 7 BT MAIN-STATION 1 Specimen Blood Performing Organization Address City/[facility] Phone Number MISYS BT MAIN-STATION 1 * PT/INR/PTT (04/24/2018 9:56 AM PHYSIOTHERAPY PRACTICE MANAGER) PT 12.7 11.8 - 15.0 Seconds BT MAIN-STATION 3 INR 1.0 BT MAIN-STATION SUGGESTED THERAPEUTIC RANGES: 3 INR 2.0-3.0 for MODERATE INTENSITY ANTICOAGULATION INR 2.5-3.5 for HIGH INTENSITY ANTICOAGULATION PTT 28.0 23.6 - 36.4 Seconds BT MAIN-STATION 3 Specimen Blood Performing Organization Address [facility] Phone Number MISYS BT MAIN-STATION 3 * 12 LEAD EKG (04/24/2018 9:31 AM PHYSIOTHERAPY PRACTICE MANAGER) 12 LEAD EKG FOR [facility] Test Date:2018-04-24 Pat Name: XENA JULIAN Department: [id number] Room: Gender: Ryan Winter Intern: [id number] :1981-0 12-19 Requested By: CHESTER FISH Order Number: [id number] Reading MD: Tavo Villavicencio M.D. Measurements Intervals [place] Rate: 52 P:78 MA: 134 QRS: 68 QRSD: 92 T:64 QT: 410 QTc:384 Interpretive Statements SINUS BRADYCARDIA Electronically Signed On 04-24-2018 10:02:44 PHYSIOTHERAPY PRACTICE MANAGER by Tavo Villavicencio M.D. Specimen Performing Organization Address City/[facility] Phone Number SMS * XRAY CHEST 2 VIEWS (04/18/2018 10:28 AM PHYSIOTHERAPY PRACTICE MANAGER) Specimen Impressions Performed At IMPRESSION: [facility] Nodular densities.In the setting of recently discovered renal mass. Recommend chest CTfor further evaluation. Dictated By: Orlin Salamanca MD, 04/18/2018 11:10 AM I have reviewed the study and agree with the findings in this report. Signed By: Axel Betancourt MD, 04/18/2018 11:12 AM Narrative Performed At EXAMINATION:XRAY CHEST 2 VIEWS SMS INDICATION: left renal lesion COMPARISON:None FINDINGS: TUBES and LINES:None. LUNGS:Lungs are well inflated.There are a few nonspecific nodular densities. There is no evidence of pneumonia or pulmonary edema. PLEURA:No pleural effusion or pneumothorax. HEART AND MEDIASTINUM:The cardiomediastinal silhouette is unremarkable. BONES AND SOFT TISSUES:No acute osseous lesion.Soft tissues are unremarkable. UPPER ABDOMEN: No free air under the diaphragm. Procedure Note Interface, Rad/Mammog In - 04/18/2018 11:17 AM PHYSIOTHERAPY PRACTICE MANAGER EXAMINATION: XRAY CHEST 2 VIEWS INDICATION: left renal lesion COMPARISON: None FINDINGS: TUBES and LINES: None. LUNGS: Lungs are well inflated. There are a few nonspecific nodular densities. There is no evidence of pneumonia or pulmonary edema. PLEURA: No pleural effusion or pneumothorax. HEART AND MEDIASTINUM: The cardiomediastinal silhouette is unremarkable. BONES AND SOFT TISSUES: No acute osseous lesion. Soft tissues are unremarkable. UPPER ABDOMEN: No free air under the diaphragm. IMPRESSION IMPRESSION: Nodular densities. In the setting of recently discovered renal mass. Recommend chest CT for further evaluation. Dictated By: Orlin Salamanca MD, 04/18/2018 11:10 AM I have reviewed the study and agree with the findings in this report. Signed By: Axel Betancourt MD, 04/18/2018 11:12 AM Performing Organization Address City/State/Zipcode Phone Number SMS * CT ABDOMEN W AND W/O CONTRAST - KIDNEY (03/08/2018 4:22 PM PHYSIOTHERAPY PRACTICE MANAGER) Specimen Impressions Performed At IMPRESSION: SMS 1.Left renal mass measures 5 cm with numerous enhancing septations and solid mural components, concerning for cystic renal cell carcinoma (likely clear cell subtype). A multilocular cystic nephroma is a less likely consideration. Recommend surgical consult. 2.No abdominal lymphadenopathy or other suspicious lesions within the abdomen. No evidence of extension outside Gerota's fascia, vascular invasion or distant metastatic disease. 3.Moderate gastric fundal and body wall thickening, greater than expected for degree of underdistention. This may represent gastritis. Direct visualization with endoscopy is recommended for further evaluation. Dictated By: Sloan Mitchell MD, 03/11/2018 7:56 AM I have reviewed the study and agree with the findings in this report. Signed By: Alex Lira MD, 03/11/2018 4:40 PM Narrative Performed At EXAM: CT Abdomen WITHOUT and WITH contrast SMS INDICATION: Complex renal mass COMPARISON: None TECHNIQUE:Abdomen was scanned utilizing a multidetector helical scanner from the lung base to the iliac crest before and after administration of IV contrast. Coronal and sagittal reformations were obtained. Renal mass protocol was performed. Scan was performed pre-, nephrographic, and 4 minute delayed phase. IV CONTRAST: 149 mL of Omnipaque 300 ORAL CONTRAST: Water COMPLICATIONS: None RADIATION DOSE: Total DLP: 597 mGy*cm Estimated effective dose: (DLP x 0.015 x size factor) mSv CTDIvol has been reviewed. It is below the limits set by the Radiation Protocol Committee (RPC). FINDINGS: LINES and TUBES: None. LOWER THORAX:Unremarkable HEPATOBILIARY: No focal hepatic lesions. No biliary ductal dilation. GALLBLADDER: No radio-opaque stones or sludge.No wall thickening. SPLEEN: No splenomegaly. PANCREAS: No focal masses or ductal dilatation. ADRENALS: No adrenal nodules. KIDNEYS/URETERS: Kidneys enhance symmetrically.No hydronephrosis or stones. Left inferior pole 5.0 x 4.7 x 3.9 cm partly exophytic mass with numerous enhancing thickened septations and solid mural nodules that washout on delayed phase. There are multiple internal cystic locules, which may reflect necrosis.. Collecting System: Patent Renal Artery: Patent Renal Vein: Patent IVC: Patent GI TRACT: Nonspecific moderate gastric wall thickening predominantly involving the fundus and body which is greater than expected for gastric underdistention. No abnormal distention, wall thickening, or evidence of bowel obstruction. LYMPH NODES: No lymphadenopathy. VESSELS: Unremarkable. No filling defects in the IVC or renal veins. PERITONEUM / RETROPERITONEUM: No free air or fluid. BONES: Unremarkable. SOFT TISSUES: Unremarkable. Procedure Note Interface, Rad/Mammog In - 03/11/2018 4:45 PM PHYSIOTHERAPY PRACTICE MANAGER EXAM: CT Abdomen WITHOUT and WITH contrast INDICATION: Complex renal mass COMPARISON: None TECHNIQUE: Abdomen was scanned utilizing a multidetector helical scanner from the lung base to the iliac crest before and after administration of IV contrast. Coronal and sagittal reformations were obtained. Renal mass protocol was performed. Scan was performed pre-, nephrographic, and 4 minute delayed phase. IV CONTRAST: 149 mL of Omnipaque 300 ORAL CONTRAST: Water COMPLICATIONS: None RADIATION DOSE: Total DLP: 597 mGy*cm Estimated effective dose: (DLP x 0.015 x size factor) mSv CTDIvol has been reviewed. It is below the limits set by the Radiation Protocol Committee (RPC). FINDINGS: LINES and TUBES: None. LOWER THORAX: Unremarkable HEPATOBILIARY: No focal hepatic lesions. No biliary ductal dilation. GALLBLADDER: No radio-opaque stones or sludge. No wall thickening. SPLEEN: No splenomegaly. PANCREAS: No focal masses or ductal dilatation. ADRENALS: No adrenal nodules. KIDNEYS/URETERS: Kidneys enhance symmetrically. No hydronephrosis or stones. Left inferior pole 5.0 x 4.7 x 3.9 cm partly exophytic mass with numerous enhancing thickened septations and solid mural nodules that washout on delayed phase. There are multiple internal cystic locules, which may reflect necrosis.. Collecting System: Patent Renal Artery: Patent Renal Vein: Patent IVC: Patent GI TRACT: Nonspecific moderate gastric wall thickening predominantly involving the fundus and body which is greater than expected for gastric underdistention. No abnormal distention, wall thickening, or evidence of bowel obstruction. LYMPH NODES: No lymphadenopathy. VESSELS: Unremarkable. No filling defects in the IVC or renal veins. PERITONEUM / RETROPERITONEUM: No free air or fluid. BONES: Unremarkable. SOFT TISSUES: Unremarkable. IMPRESSION IMPRESSION: 1. Left renal mass measures 5 cm with numerous enhancing septations and solid mural components, concerning for cystic renal cell carcinoma (likely clear cell subtype). A multilocular cystic nephroma is a less likely consideration. Recommend surgical consult. 2. No abdominal lymphadenopathy or other suspicious lesions within the abdomen. No evidence of extension outside Gerota's fascia, vascular invasion or distant metastatic disease. 3. Moderate gastric fundal and body wall thickening, greater than expected for degree of underdistention. This may represent gastritis. Direct visualization with endoscopy is recommended for further evaluation. Dictated By: Sloan Mitchell MD, 03/11/2018 7:56 AM I have reviewed the study and agree with the findings in this report. Signed By: Alex Lira MD, 03/11/2018 4:40 PM Performing Organization Address City/State/Zipcode Phone Number SMS * CREATININE (02/28/2018 10:47 AM PHYSIOTHERAPY PRACTICE MANAGER) Creatinine 0.80 0.7 - 1.3 mg/dL BT MAIN-STATION 1 GFR, Estimated >60 mL/min/1.73 m2 BT MAIN-STATION 1 eGFR If Africn >60 mL/min/1.73 m2 BT MAIN-STATION Am 1 Specimen Blood Performing Organization Address City/State/Zipcode Phone Number MISYS MAIN-STATION 1 * CT ABDOMEN AND PELVIS CONTRAST (02/02/2018 1:30 AM CDT) Specimen Impressions Performed At IMPRESSION: SMS Study aborted due to contrast extravasation (see Epic note). Dictated By: Anderson Meza MD, 02/02/2018 7:41 PM I have reviewed the study and agree with the findings in this report. Signed By: Josey Dhillon MD, 02/02/2018 8:01 PM Narrative Performed At EXAM: CT Abdomen and Pelvis WITH contrast SMS INDICATION: further evaluate left renal mass on outside CT w/o contrast COMPARISON: Outside institution CT 12/27/2017 TECHNIQUE: Abdomen and pelvis were scanned utilizing a multidetector helical scanner from the lung base to the pubic symphysis after administration of IV contrast. Coronal and sagittal reformations were obtained. Routine protocol was performed. Scan was performed during portal venous phase. IV CONTRAST: See below ORAL CONTRAST: None COMPLICATIONS: Study canceled due to extravasation of contrast RADIATION DOSE: Total DLP: 11 mGy*cm Estimated effective dose: (DLP x 0.015 x size factor) mSv CTDIvol has been reviewed. It is below the limits set by the Radiation Protocol Committee (RPC). FINDINGS: Study aborted due to extravasation of contrast (see Epic note). Only a localizer image was obtained which does not demonstrate acute findings. Procedure Note Interface, Rad/Mammog In - 02/02/2018 8:06 PM CDT EXAM: CT Abdomen and Pelvis WITH contrast INDICATION: further evaluate left renal mass on outside CT w/o contrast COMPARISON: Outside institution CT 12/27/2017 TECHNIQUE: Abdomen and pelvis were scanned utilizing a multidetector helical scanner from the lung base to the pubic symphysis after administration of IV contrast. Coronal and sagittal reformations were obtained. Routine protocol was performed. Scan was performed during portal venous phase. IV CONTRAST: See below ORAL CONTRAST: None COMPLICATIONS: Study canceled due to extravasation of contrast RADIATION DOSE: Total DLP: 11 mGy*cm Estimated effective dose: (DLP x 0.015 x size factor) mSv CTDIvol has been reviewed. It is below the limits set by the Radiation Protocol Committee (RPC). FINDINGS: Study aborted due to extravasation of contrast (see Epic note). Only a localizer image was obtained which does not demonstrate acute findings. IMPRESSION IMPRESSION: Study aborted due to contrast extravasation (see Epic note). Dictated By: Anderson Meza MD, 02/02/2018 7:41 PM I have reviewed the study and agree with the findings in this report. Signed By: Josey Dhillon MD, 02/02/2018 8:01 PM Performing Organization Address [facility] Phone Number SMS * BMP POC (02/01/2018 5:00 PM CDT) CO2 POC 29Comment: Physician Notified 21 - 32 mmol/L BT MAIN-STATION 1 Chloride POC 100 98 - 107 mmol/L BT MAIN-STATION 1 Potassium POC 3.7 3.50 - 5.10 mmol/L BT MAIN-STATION 1 Sodium POC 141 136 - 145 mmol/L BT MAIN-STATION 1 Glucose POC 102 74 - 106 mg/dL BT MAIN-STATION 1 Urea Nitrogen 16 7 - 18 mg/dL BT MAIN-STATION POC 1 Creatinine POC 0.9 0.6 - 1.3 mg/dL BT MAIN-STATION 1 Calcium Ionized 1.17 1.15 - 1.29 mmol/L BT MAIN-STATION POC 1 Hemoglobin POC 15.3 14.0 - 18.0 g/dL BT MAIN-STATION 1 Hematocrit POC 45.0 40.0 - 54.0 % BT MAIN-STATION 1 GFR, Estimated >60 mL/min/1.73 m2 BT MAIN-STATION 1 GFR, Estim, >60 mL/min/1.73 m2 BT MAIN-STATION Afr-Am 1 Specimen Performing Organization Address [facility] Phone Number MISYS BT MAIN-STATION 1 * UA CHEMISTRIES (02/01/2018 4:51 PM CDT) Color Yellow BT MAIN-STATION 3 Clarity Clear BT MAIN-STATION 3 Specific 1.023 1.001 - 1.035 BT MAIN-STATION [place] 3 pH 5.0 5 - 8 BT MAIN-STATION 3 Protein Negative NEG BT MAIN-STATION 3 Glucose Negative NEG BT MAIN-STATION 3 Ketones Negative NEG BT MAIN-STATION 3 Bilirubin Negative NEG BT MAIN-STATION 3 Nitrate Negative NEG BT MAIN-STATION 3 Urobilinogen,Se <1.0 0.2 - 1.0 EU/dL BT MAIN-STATION mi-Qn 3 Leukocyte Negative NEG BT MAIN-STATION 3 Occult Blood Negative NEG BT MAIN-STATION 3 Specimen Urine Performing Organization Address City/State/Zipcode Phone Number MISYS BT MAIN-STATION 3 after 12/26/2017 Insurance Type Payer Benefit Subscriber ID Effective Phone Address Plan / Dates Group [place] [employer] [place] 2018- [phone] [employer] [id number] PLANNING [place], [place] [id number] [employer] xxxxxxx 2018- [phone] [id number] [place] [address] Advance Directives Date Inactivated Comments Code Status Date Activated 05/05/2018 2:05 PM Full Code 05/02/2018 2:48 PM
--- NOTE | 2018-12-27 20:29 | Diagnostic Imaging Report ---
EXAMINATION: CT of the abdomen and pelvis without contrast. TECHNIQUE: Helical CT images of the abdomen and pelvis were performed from the lung bases to the lesser trochanters. No intravenous contrast was given per renal stone protocol. Coronal and sagittal reformatted images were obtained.Dose modulation, iterative reconstruction, and/or weight based adjustment of the mA/kV was utilized to reduce the radiation dose to as low as reasonably achievable. COMPARISON: None. CLINICAL HISTORY:Abdominal pain, DISCUSSION: ABSENCE OF INTRAVENOUS CONTRAST DECREASES SENSITIVITY FOR DETECTION OF FOCAL LESIONS AND VASCULAR PATHOLOGY. ABDOMEN/PELVIS: LOWER THORAX: Unremarkable. HEPATOBILIARY:No focal hepatic lesions. No biliary ductal dilation. The gallbladder is normal. SPLEEN: No splenomegaly. PANCREAS: No focal masses or ductal dilatation. ADRENALS: No adrenal nodules. KIDNEYS/URETERS: Right kidney normal. Left kidney absent. PELVIC ORGANS/BLADDER: The bladder is normal. PERITONEUM/RETROPERITONEUM: No free air or fluid. LYMPH NODES: No intra-abdominal,retroperitoneal, pelvic or inguinal lymphadenopathy. VESSELS: Limited evaluation GI TRACT: No distention or wall thickening. BONES AND SOFT TISSUES: No bony destructive lesions. No soft tissue abnormalities. IMPRESSION: No acute CT finding. Signed by: Dr. Jonny Patton M.D. on 12/27/2018 8:26 PM
== END 2018-12-27 20:43 | disposition home or self-care (01) ==
LOC: FSED 19:21
DX: R20.0 Anesthesia of skin (principal); M54.6 Pain in thoracic spine; V43.63XA Car passenger injured in collision with pick-up truck in traffic accident, initial encounter; Y92.488 Other paved roadways as the place of occurrence of the external cause; N28.9 Disorder of kidney and ureter, unspecified; Z85.528 Personal history of other malignant neoplasm of kidney
CPT/HCPCS: 74176; 99283